=== PATIENT | female | born 1965 | race Caucasian/White ===

== ENCOUNTER → 2017-03-27 | Outpatient (CLI) | payer MEDICAID ==
--- NOTE | 2017-03-29 08:01 | MM ---
Reason for exam: screening (asymptomatic). Last mammogram was performed 1 year and 7 months ago. History: Patient is nulliparous. Cyst aspiration of the left breast. Took hormonal contraceptives for 2 years beginning at age 33. Physical Findings: A clinical breast exam by your physician is recommended on an annual basis and results should be correlated with mammographic findings. MG 3D Screening Mammo W/Cad Bilateral CC and MLO view(s) were taken. Prior study comparison: August 14, 2015, bilateral MG screening mammo w CAD. July 21, 2014, bilateral MG screening mammo w CAD. July 26, 2012, bilateral digital screening mammo w/CAD. The breast tissue is heterogeneously dense. This may lower the sensitivity of mammography. Nodular asymmetry lateral left breast at a middle to posterior depth doesn't clearly persist on tomosynthesis and can be reassessed in 6 months. Scattered regional calcifications are unchanged. ASSESSMENT: Probably benign, BI-RAD 3 RECOMMENDATION: Follow-up diagnostic mammogram of the left breast in 6 months.
== END | disposition home or self-care (01) ==
LOC: RADMAMWWP 07:59
PROVIDERS: ATTEND Obstetrics & Gynecology
DX: Z12.31 Encounter for screening mammogram for malignant neoplasm of breast (principal); R92.8 Other abnormal and inconclusive findings on diagnostic imaging of breast; R53.83 Other fatigue
CPT/HCPCS: 82607; 77063; G0202

== ENCOUNTER → 2018-02-19 | Outpatient (CLI) | payer MEDICAID | END | disposition home or self-care (01) | LOC: LABWHC1 11:03 | PROVIDERS: ATTEND Internal Medicine Endocrinology, Diabetes & Metabolism | DX: E03.8 Other specified hypothyroidism (principal); E55.9 Vitamin D deficiency, unspecified | CPT/HCPCS: 36415; 82306; 84443 ==

== ENCOUNTER → 2018-06-15 | Outpatient (CLI) | payer MEDICAID | END | disposition home or self-care (01) | LOC: LABWHC1 13:47 | PROVIDERS: ATTEND Internal Medicine Endocrinology, Diabetes & Metabolism | DX: E55.9 Vitamin D deficiency, unspecified (principal); E03.8 Other specified hypothyroidism | CPT/HCPCS: 36415; 82306; 84443 ==

== ENCOUNTER → 2018-08-13 | Outpatient (CLI) | payer MEDICAID ==
--- NOTE | 2018-08-14 07:54 | MM ---
Reason for exam: additional evaluation requested from prior study. Last mammogram was performed 1 year and 5 months ago. History: Patient is postmenopausal and is nulliparous. Cyst aspiration of the left breast. Took hormonal contraceptives for 2 years beginning at age 33. Physical Findings: Nurse did not find any significant physical abnormalities on exam. MG 3D Diag Mammo W/Cad ISIAH Bilateral CC and MLO view(s) were taken. Prior study comparison: March 27, 2017, bilateral MG 3d screening mammo w/cad. August 14, 2015, bilateral MG screening mammo w CAD. The breast tissue is extremely dense which could obscure a lesion on mammography. Regional calcifications superior right breast unchanged. A couple centrally located asymmetric densities right breast are more defined. Asymmetric density lower outer quadrant left breast on 3D MLO view. These results were verbally communicated with the patient and result sheet given to the patient on 08/13/18. ASSESSMENT: Incomplete: need additional imaging evaluation, BI-RAD 0 RECOMMENDATION: Ultrasound of both breasts. (right 5-1 o'clock, left 3-6 o'clock)
--- NOTE | 2018-08-14 08:00 | USB ---
Reason for exam: additional evaluation requested from abnormal screening. History: Patient is postmenopausal and is nulliparous. Cyst aspiration of the left breast. Took hormonal contraceptives for 2 years beginning at age 33. US Breast Limited BILAT Right limited breast ultrasound including focal area of concern, retroareolar and axilla demonstrates no cystic or solid lesion seen. Left limited breast ultrasound including focal area of concern, retroareolar and axilla demonstrates no cystic or solid lesion seen. Left scanned 3-6 o'clock, right scanned 5-1 o'clock. Very dense shadowing breast tissue is present on the left. No convincing solid or cystic lesion is seen. Given the asymmetries and very dense tissues on ultrasound, 6 month follow up ultrasound recommended. These results were verbally communicated with the patient and result sheet given to the patient on 08/13/18. ASSESSMENT: Probably benign, BI-RAD 3 RECOMMENDATION: Ultrasound of both breasts in 6 months.
== END ==
LOC: RADMAMWWP 14:21
PROVIDERS: ATTEND Obstetrics & Gynecology
DX: R92.8 Other abnormal and inconclusive findings on diagnostic imaging of breast (principal)
CPT/HCPCS: 77062; 77066

== ENCOUNTER → 2019-02-14 | Outpatient (CLI) | payer MEDICAID | END | disposition home or self-care (01) | LOC: LABWHC1 10:36 | PROVIDERS: ATTEND Internal Medicine Endocrinology, Diabetes & Metabolism | DX: E03.8 Other specified hypothyroidism (principal) | CPT/HCPCS: 36415; 84443 ==

== ENCOUNTER → 2019-03-12 | Outpatient (CLI) | payer MEDICAID ==
--- NOTE | 2019-03-12 14:41 | USB ---
Reason for exam: follow-up at short interval from prior study. History: Patient is postmenopausal and is nulliparous. Cyst aspiration of the left breast. Took hormonal contraceptives for 2 years beginning at age 33. Physical Findings: Nurse did not find any significant physical abnormalities on exam. US Breast BILAT Left complete breast ultrasound includes all four quadrants, the retroareolar region and axilla. Finding demonstrates a 1.2 x 1.1 x 1.1cm cystic lesion at 1 o'clock. Right complete breast ultrasound includes all four quadrants, the retroareolar region and axilla. Finding demonstrates no cystic or solid lesion seen. These results were verbally communicated with the patient and result sheet given to the patient on 03/12/19. ASSESSMENT: Benign, BI-RAD 2 RECOMMENDATION: Routine screening mammogram of both breasts in 5 months. Back on schedule for July 2019.
== END | disposition home or self-care (01) ==
LOC: RADUSWWP 13:38
PROVIDERS: ATTEND Obstetrics & Gynecology
DX: R92.8 Other abnormal and inconclusive findings on diagnostic imaging of breast (principal)

== ENCOUNTER → 2019-07-19 | Outpatient (CLI) | payer MEDICAID | END | disposition home or self-care (01) | LOC: LABWHC1 12:00 | PROVIDERS: ATTEND Internal Medicine Endocrinology, Diabetes & Metabolism | DX: E03.8 Other specified hypothyroidism (principal); E55.9 Vitamin D deficiency, unspecified | CPT/HCPCS: 36415; 82306; 84443 ==

== ENCOUNTER 2019-07-30 09:18 | Day surgery (SDC) | payer MEDICAID ==
[2019-07-24 14:35] VITALS: BMI 29.2
[~2019-07-30 09:18] MED LIST: LACTATED RINGERS 1,000 ML IV SCH
[2019-07-30 09:39] VITALS: RESP 16; TEMP 97.2
[2019-07-30] MEDS ORDERED: LIDOCAINE 1% 20 ML VIAL (10MG/ML) FOR IV START INTRADERMA ONE (09:53)
[2019-07-30] MEDS ORDERED: LIDOCAINE 1% INJ 10MG/ML (20 ML MDV) ONE (10:09)
[2019-07-30] MEDS ORDERED: PROPOFOL 10 MG/ML 20 ML VIAL IV ONE (10:09)
--- NOTE | 2019-07-30 10:52 | P.PCN ---
Date of Procedure: 07/30/19 Description of Procedure: Brief history: Patient is a pleasant scheduled for an elective upper endoscopy as well as colonoscopy as a part of evaluation of epigastric pain, bloating and family history of colon cancer. The patient will again losing. She does sensitivity to dairy and does use creamer in her coffee. She also prior colonoscopy in 2013. She notes that her father was recently diagnosed with metastatic colon cancer. Procedure performed: Esophagogastroduodenoscopy with biopsy Colonoscopy Estimated blood loss: Minimal. Preoperative diagnosis: Epigastric abdominal pain, abdominal bloating and distention, family history of colon cancer Anesthesia: MAC Procedure: After informed consent was obtained from the patient was brought into the endoscopy unit and IV sedation was administered by anesthesia under continuous monitoring. Initially upper endoscopy was done. The Olympus GF 190 video endoscope was inserted inserted into the mouth and esophagus intubated without any difficulty and was gradually advanced into the stomach and duodenum and carefully examined. The bulb and second part of the duodenum appeared normal., with biopsies taken The scope was then withdrawn into the stomach adequately insufflated with air and upon careful examination the antrum and body, cardia and fundus appeared normal except for some mild scattered erythema in the antrum and body suggestive of mild gastritis with biopsies taken . The scope was then withdrawn into the esophagus. The GE junction was located at 37 cm to the incisors. It appeared regular with no erythema erosions or ulcerations. Rest of the esophagus appeared normal. Patient tolerated the procedure well. At this time the patient continued to remain sedation. Initial digital rectal examination was normal. Olympus CF 190 video colonoscope was then inserted into the rectum and gradually advanced to the cecum without any difficulty. Careful examination was performed as the scope was gradually being withdrawn. The prep was excellent. The cecum, ascending colon, transverse colon, descending colon, sigmoid colon and rectum appeared normal. Colon was somewhat tortuous. Retroflexion was performed in the rectum and no lesions were noted, mild internal hemorrhoids seen . Patient tolerated the procedure well. Impression: 1. Mild gastritis antrum body, biopsied. Duodenal biopsies. 2. Mild internal hemorrhoids. Recommendations: Findings of this examination were discussed with the patient as well as her family. Okay to resume diet. Okay to resume medication. Await pathology from biopsies. Anticipate repeat colonoscopy in 5 years given family history of colon cancer.
[2019-07-30 11:11] VITALS: BP 109/62; PULSE 79
== END 2019-07-30 11:48 | disposition home or self-care (01) ==
LOC: ORWHC2ENDO 09:18
PROVIDERS: ATTEND Internal Medicine
DX: K29.50 Unspecified chronic gastritis without bleeding (principal); K64.8 Other hemorrhoids; Z80.0 Family history of malignant neoplasm of digestive organs; Q43.8 Other specified congenital malformations of intestine; E07.9 Disorder of thyroid, unspecified; Z79.890 Hormone replacement therapy
CPT/HCPCS: 43239; 45378; 88305; 88342; J2001; J2704

== ENCOUNTER → 2019-08-15 | Outpatient (CLI) | payer MEDICAID ==
--- NOTE | 2019-08-15 13:19 | XR ---
EXAMINATION TYPE: XR hand complete LT DATE OF EXAM: 08/15/2019 CLINICAL HISTORY: pain TECHNIQUE: Frontal, lateral and oblique images of the left hand are obtained. COMPARISON: None. FINDINGS: There is no acute fracture/dislocation evident. The joint spaces appear within normal limi ts. The overlying soft tissue appears unremarkable. IMPRESSION: There is no acute fracture or dislocation. ICD 10 NO FRACTURE, INITIAL EVALUATION
== END | disposition home or self-care (01) ==
LOC: RADXRMAIN 12:57
PROVIDERS: ATTEND Family Medicine
DX: M25.542 Pain in joints of left hand (principal)

== ENCOUNTER → 2019-08-16 | Outpatient (CLI) | payer MEDICAID ==
--- NOTE | 2019-08-20 08:27 | MM ---
Reason for exam: screening (asymptomatic). Last mammogram was performed 1 year ago. History: Patient is postmenopausal and is nulliparous. Family history of breast cancer in paternal grandmother. Cyst aspiration of the left breast. Took hormonal contraceptives for 2 years beginning at age 33. Physical Findings: A clinical breast exam by your physician is recommended on an annual basis and results should be correlated with mammographic findings. MG 3D Screening Mammo W/Cad Bilateral CC and MLO view(s) were taken. Prior study comparison: August 13, 2018, bilateral MG 3d diag mammo w/cad [facility]. March 27, 2017, bilateral MG 3d screening mammo w/cad. The breast tissue is heterogeneously dense. This may lower the sensitivity of mammography. There is chronic nodularity in the right posterior central and lateral on the CC view. Stable regional calcifications on the right. No significant changes when compared with prior studies. ASSESSMENT: Benign, BI-RAD 2 RECOMMENDATION: Routine screening mammogram of both breasts in 1 year.
== END | disposition home or self-care (01) ==
LOC: RADMAMWWP 13:48
PROVIDERS: ATTEND Obstetrics & Gynecology
DX: Z12.31 Encounter for screening mammogram for malignant neoplasm of breast (principal)
CPT/HCPCS: 77063; 77067

== ENCOUNTER → 2019-08-17 | Outpatient (CLI) | payer MEDICAID ==
[2019-08-17 09:47] LABS: Basophils % (A) 1 %; Eosinophils # (A) 0.2 k/uL (0-0.7); Eosinophils % (A) 4 %; HCT 41.2 % (34.0-46.0); HGB 13.9 gm/dL (11.4-16.0); Lymphocytes # (A) 1.6 k/uL (1.0-4.8); Lymphocytes % (A) 31 %; MCH 28.2 pg (25.0-35.0); MCHC 33.6 g/dL (31.0-37.0); Mean Platelet Volume 6.4; Monocytes # (A) 0.3 k/uL (0-1.0); Monocytes % (A) 5 %; Neutrophils # (A) 2.9 k/uL (1.3-7.7); Neutrophils % (A) 56 %; Platelet Count 316 k/uL (150-450); RBC 4.91 m/uL (3.80-5.40); RDW 13.7 % (11.5-15.5); WBC 5.2 k/uL (3.8-10.6)
[2019-08-17 11:25] LABS: Erythrocyte Sedimentation Rate 18 mm/hr (0-20)
[2019-08-17 16:16] LABS: Rheumatoid Factor 6 IU/mL (0-15)
[2019-08-17 16:36] LABS: ALT 27 U/L (8-44); AST 27 U/L (13-35); African American GFR (CKD) 112.3 (60.0-200.0); Alkaline Phosphatase 125 U/L (41-126); BUN/Creat Ratio 15.71 Ratio (12.00-20.00); C Reactive Protein <0.4 mg/dL (0.0-0.8); Calcium 9.8 mg/dL (8.7-10.3); Chloride 104 mmol/L (96-109); Cholesterol 270 mg/dL (0-200); Glucose 89 mg/dL (70-110); LDL Cholesterol,Calculated 177.2 mg/dL (0.0-131.0); Potassium 4.1 mmol/L (3.5-5.5); Sodium 141 mmol/L (135-145); Total Bilirubin 0.5 mg/dL (0.3-1.2); Total Protein 6.6 g/dL (6.2-8.2)
[2019-08-17 17:30] LABS: Hemoglobin A1C 5.5 % (4.0-6.0)
[2019-08-19 11:18] LABS: Cyclic Citrull Pep IgG Unit <0.5 U/mL; Cyclic Citrullinated Pep IgG NEGATIVE (NEGATIVE)
== END | disposition home or self-care (01) ==
LOC: LABWHC1 08:51
PROVIDERS: ATTEND Family Medicine
DX: M25.542 Pain in joints of left hand (principal); Z13.220 Encounter for screening for lipoid disorders; Z13.1 Encounter for screening for diabetes mellitus
CPT/HCPCS: 36415; 80053; 80061; 83036; 85025; 85652; 86038; 86140; 86200; 86431

== ENCOUNTER → 2020-02-19 | Outpatient (CLI) | payer MEDICAID ==
[2020-02-19 15:53] LABS: Chol/HDL Ratio 3.52; LDL Cholesterol,Calculated 197.4 mg/dL (0.0-131.0); VLDL Calculation 16.6 mg/dL (5.00-40.00)
== END | disposition home or self-care (01) ==
LOC: LABWHC1 09:12
PROVIDERS: ATTEND Internal Medicine Endocrinology, Diabetes & Metabolism
DX: E78.5 Hyperlipidemia, unspecified (principal); E03.8 Other specified hypothyroidism
CPT/HCPCS: 36415; 80061; 84443

== ENCOUNTER → 2020-05-22 | Outpatient (CLI) | payer MEDICAID ==
[~2020-05-22] MED LIST changes: -LACTATED RINGERS 1,000 ML IV SCH; +SODIUM CHLORIDE 0.9% 500 ML 500 ML in EMPTY BAG 1 BAG IV PRN
[2020-05-22 09:36] VITALS: BP 124/63; PULSE 68; RESP 16; TEMP 99
[2020-05-28 16:42] LABS: Metanephrine, Free <25 pg/mL (< OR = 57); Normetanephrine, Free 57 pg/mL (< OR = 148); Total, Free (MN + NMN) 57 pg/mL (< OR = 205)
== END | disposition home or self-care (01) ==
LOC: PROCWHC3 09:14
PROVIDERS: ATTEND Internal Medicine Endocrinology, Diabetes & Metabolism
DX: R23.2 Flushing (principal)
CPT/HCPCS: 36415; 82384; 83835

== ENCOUNTER → 2021-02-15 | Outpatient (CLI) | payer MEDICAID ==
[2021-02-15 19:27] LABS: T4, Free (Free Thyroxine) 1.4 ng/dL (0.80-1.80)
== END | disposition home or self-care (01) ==
LOC: LABWHC1 11:19
PROVIDERS: ATTEND Internal Medicine Endocrinology, Diabetes & Metabolism
DX: E03.8 Other specified hypothyroidism (principal); E55.9 Vitamin D deficiency, unspecified
CPT/HCPCS: 36415; 82306; 84439; 84443

== ENCOUNTER → 2021-04-02 | Outpatient (CLI) | payer MEDICAID ==
--- NOTE | 2021-04-05 10:27 | MM ---
Reason for exam: screening (asymptomatic). Last mammogram was performed 1 year and 8 months ago. History: Patient is postmenopausal and is nulliparous. Family history of breast cancer in paternal grandmother. Cyst aspiration of the left breast. Took hormonal contraceptives for 2 years beginning at age 33. Physical Findings: A clinical breast exam by your physician is recommended on an annual basis and results should be correlated with mammographic findings. MG 3D Screening Mammo W/Cad Bilateral CC and MLO view(s) were taken. Prior study comparison: August 16, 2019, bilateral MG 3d screening mammo w/cad. August 13, 2018, bilateral MG 3d diag mammo w/cad ISIAH. The breast tissue is heterogeneously dense. This may lower the sensitivity of mammography. Finding #1: Architectural distortion in the posterior, central position of the left breast. Finding #2: There are typically benign calcifications in the left breast. ASSESSMENT: Incomplete: need additional imaging evaluation, BI-RAD 0 RECOMMENDATION: Special view mammogram of the left breast. If lesion persists on supplemental views, image directed ultrasound is recommended. [facility] will attempt to contact patient to return for supplemental views and ultrasound if indicated.
== END | disposition home or self-care (01) ==
LOC: RADMAMWWP 13:24
PROVIDERS: ATTEND Obstetrics & Gynecology
DX: Z12.31 Encounter for screening mammogram for malignant neoplasm of breast (principal); Z78.0 Asymptomatic menopausal state; Z80.3 Family history of malignant neoplasm of breast
CPT/HCPCS: 77063; 77067

== ENCOUNTER → 2021-04-21 | Outpatient (CLI) | payer MEDICAID ==
--- NOTE | 2021-04-21 13:53 | MM ---
Reason for exam: additional evaluation requested from abnormal screening. Last mammogram was performed 1 month ago. History: Patient is postmenopausal and is nulliparous. Family history of breast cancer in paternal grandmother. Cyst aspiration of the left breast. Took hormonal contraceptives for 2 years beginning at age 33. Physical Findings: Nurse did not find any significant physical abnormalities on exam. MG 3D Work Up W/Cad LT Spot compression CC, LM, and XCCL view(s) were taken of the left breast. Prior study comparison: April 02, 2021, bilateral MG 3d screening mammo w/cad. August 16, 2019, bilateral MG 3d screening mammo w/cad. The breast tissue is extremely dense which could obscure a lesion on mammography. Architectural distortion 4-5cm left breast, best seen on CC, central to slight lateral position. Ultrasound left breast. These results were verbally communicated with the patient and result sheet given to the patient on 04/21/21. ASSESSMENT: Incomplete: need additional imaging evaluation, BI-RAD 0 RECOMMENDATION: Ultrasound of the left breast.
--- NOTE | 2021-04-21 13:55 | USB ---
Reason for exam: additional evaluation requested from abnormal screening. History: Patient is postmenopausal and is nulliparous. Family history of breast cancer in paternal grandmother. Cyst aspiration of the left breast. Took hormonal contraceptives for 2 years beginning at age 33. US Breast Workup Limited LT Left limited breast ultrasound including focal area of concern, retroareolar and axilla demonstrates no cystic or solid lesion seen. Very dense breasts. Due to increased architectural distortion on left CC view mammogram and sonographic findings, MRI of bilateral breasts is recommended. These results were verbally communicated with the patient and result sheet given to the patient on 04/21/21. ASSESSMENT: Incomplete: need additional imaging evaluation, BI-RAD 0 RECOMMENDATION: Breast MRI of both breasts.
== END | disposition home or self-care (01) ==
LOC: RADMAMWWP 10:12
PROVIDERS: ATTEND Obstetrics & Gynecology
DX: N64.59 Other signs and symptoms in breast (principal); N64.89 Other specified disorders of breast; Z78.0 Asymptomatic menopausal state; Z80.3 Family history of malignant neoplasm of breast
CPT/HCPCS: 77061; 77065

== ENCOUNTER → 2021-06-02 | Outpatient (CLI) | payer MEDICAID ==
--- NOTE | 2021-06-02 16:11 | BMR ---
EXAMINATION TYPE: MR breast BILAT wo/w con DATE OF EXAM: 06/02/2021 COMPARISON: Prior 3-D mammogram April 02, 2021 BI-RADS 0 and older mammograms. Diagnostic left breast ma mmogram April 21, 2021 BI-RADS 0. Limited left breast ultrasound April 21, 2021 BI-RADS 0. HISTORY: Abnormal Mammogram, Dense Breast Tissue TECHNIQUE: A series of fat and water weighted images in the long and short axis views of both breasts are obtained in conjunction with dynamic contrast MRI with subtraction technique. The patient was i njected with 7.5 mL intravenous Gadavist gadolinium contrast. Three-dimensional and additional post processing imaging is created on independent workstation and reviewed during official interpretation of this study. FINDINGS: Background extreme dense fibroglandular tissue bilaterally is redemonstrated. T2 and STIR w eighted images show central benign thin-walled 1.0 cm cyst in the left breast axial image 18 and occa sional smaller benign punctate thin-walled cyst bilaterally. No suspicious axillary adenopathy is not ed bilaterally. Dynamic postcontrast imaging shows mild background enhancement. Delayed dynamic postc ontrast imaging shows no suspicious internal mammary adenopathy bilaterally. With regards to the right breast, there is no abnormal skin thickening. No pathologic enhancement or enhancing masses are present. The chest wall is intact. With regards to the left breast there is no pathologic enhancement or enhancing masses identified. No suspicious skin thickening is seen. Particular attention is made to the posterior central portion at the site of distortion on mammogram. Chest wall is intact. IMPRESSION: No MRI evidence for invasive malignancy in either breast. BI-RADS 2 benign findings Recommendation: Patient is due for annual bilateral breast mammogram March 2022. Some consider bilater al breast US and/or contrast-enhanced bilateral breast mammogram surveillance in patients with backgr ound extreme dense tissue.
== END | disposition home or self-care (01) ==
LOC: RADMRIMAIN 08:00
PROVIDERS: ATTEND Obstetrics & Gynecology
DX: N60.02 Solitary cyst of left breast (principal); N60.01 Solitary cyst of right breast
CPT/HCPCS: 77049; C8937; A9585

== ENCOUNTER → 2021-07-21 | Outpatient (CLI) | payer MEDICAID ==
--- NOTE | 2021-07-21 14:56 | XR ---
EXAMINATION TYPE: XR cervical spine comp DATE OF EXAM: 07/21/2021 CLINICAL HISTORY: pain COMPARISON: NONE TECHNIQUE: Frontal, lateral, oblique, swimmers, and open mouth view of the cervical spine are obtaine d. FINDINGS: The cervical spine is visualized in its entirety from C1 thru the top of T1 level. It is s atisfactory in alignment without evidence of acute fracture or dislocation. The pre-vertebral soft t issue appears within normal limits. Degenerative narrowing at C5-6 and C6-7 with ventral spondylosis. The C1-C2 articulation is unremarkable on the open mouth view. The oblique images are within normal limits. IMPRESSION: No acute fracture or dislocation is seen in the cervical spine.ICD 10 NO FRACTURE, INITI AL EVALUATION
== END | disposition home or self-care (01) ==
LOC: RADXRMAIN 14:11
PROVIDERS: ATTEND Nurse Practitioner Family
DX: M54.2 Cervicalgia (principal)
CPT/HCPCS: 72050

== ENCOUNTER → 2021-08-06 | Outpatient (CLI) | payer MEDICAID ==
[2021-08-06 22:24] LABS: T4, Free (Free Thyroxine) 1.7 ng/dL (0.80-1.80)
== END | disposition home or self-care (01) ==
LOC: LABWHC1 09:48
PROVIDERS: ATTEND Internal Medicine Endocrinology, Diabetes & Metabolism
DX: E55.9 Vitamin D deficiency, unspecified (principal); E03.8 Other specified hypothyroidism
CPT/HCPCS: 36415; 82306; 84439; 84443

== ENCOUNTER → 2022-06-15 | Outpatient (CLI) | payer MEDICAID ==
--- NOTE | 2022-06-15 08:39 | MM ---
Reason for Exam: Clinical finding. Last mammogram was performed 1 year(s) and 2 month(s) ago. Patient History: Menarche at age 11. Patient has no children. Postmenopausal. Hormonal Contraceptives for 2 years from age 33 until age 35. Cyst Aspiration on the Left side. Paternal grandmother had breast cancer. Risk Values: Maya 5 year model risk: 1.5%. NCI Lifetime model risk: 8.3%. Tissue Density: The breast tissue is extremely dense which could obscure a lesion on mammography. Findings: Analyzed By CAD. No masses seen. No suspicious microcalcifications evident. Overall Assessment: Negative, BI-RAD 1 Management: Screening Mammogram of both breasts in 1 year. A clinical breast exam by your physician is recommended on an annual basis and results should be correlated with mammographic findings. This exam should not preclude additional follow-up of suspicious palpable abnormalities. Results were given to the patient verbally at the time of exam. Electronically signed and approved by: Woody Gallegos M.D. Radiologis
== END | disposition home or self-care (01) ==
LOC: RADMAMWWP 08:06
PROVIDERS: ATTEND Obstetrics & Gynecology
DX: R92.8 Other abnormal and inconclusive findings on diagnostic imaging of breast (principal); Z78.0 Asymptomatic menopausal state; Z80.3 Family history of malignant neoplasm of breast
CPT/HCPCS: 77062; 77066

== ENCOUNTER → 2023-02-15 | Outpatient (CLI) | payer BC, MEDICAID | END | disposition home or self-care (01) | LOC: EDBD → LABWHC1 14:21 | PROVIDERS: ATTEND Internal Medicine Endocrinology, Diabetes & Metabolism | DX: E03.8 Other specified hypothyroidism (principal) | CPT/HCPCS: 36415; 84443 ==

== ENCOUNTER → 2023-02-22 | Outpatient (CLI) | payer BC, MEDICAID ==
[2023-02-22 16:00] LABS: ALT 18 U/L (8-44); AST 23 U/L (13-35); African American GFR (CKD) 95.8 (60.0-200.0); Albumin 4.4 g/dL (3.8-4.9); Albumin/Globulin Ratio 1.73 (1.60-3.17); Alkaline Phosphatase 114 U/L (41-126); BUN/Creat Ratio 11.27 Ratio (12.00-20.00); Blood Urea Nitrogen 8.8 mg/dL (9.0-27.0); Calcium 9.6 mg/dL (8.7-10.3); Carbon Dioxide 27.6 mmol/L (20.0-27.5); Chloride 102 mmol/L (96-109); Chol/HDL Ratio 2.53 Ratio; Globulin 2.6 g/dL (1.6-3.3); Glucose 97 mg/dL (70-110); LDL Cholesterol,Calculated 102.1 mg/dL (0.0-131.0); Non-African American GFR(CKD) 82.6 (60.0-200.0); Potassium 3.9 mmol/L (3.5-5.5); Sodium 140 mmol/L (135-145); VLDL Calculation 16.42 mg/dL (5.00-40.00)
== END | disposition home or self-care (01) ==
LOC: LABWHC1 09:52
PROVIDERS: ATTEND Obstetrics & Gynecology
DX: Z78.0 Asymptomatic menopausal state (principal)
CPT/HCPCS: 36415; 80053; 80061; 83036

== ENCOUNTER → 2023-06-26 | Outpatient (CLI) | payer BC, MEDICAID ==
--- NOTE | 2023-06-27 20:31 | MM ---
Reason for Exam: Screening (asymptomatic). Last screening mammogram was performed 12 month(s) ago. Patient History: Menarche at age 11. Patient has no children. Postmenopausal. Hormonal Contraceptives for 2 years from age 33 until age 35. Cyst Aspiration on the Left side. Paternal grandmother had breast cancer. Risk Values: Maya 5 year model risk: 1.6%. NCI Lifetime model risk: 8.1%. Prior Study Comparison: 04/02/2021 Bilateral Screening Mammogram, [facility]. 04/21/2021 Left Diagnostic Mammogram, [facility]. 06/15/2022 Bilateral MG 3D diag mammo w/cad ISIAH, [facility]. Tissue Density: The breast tissue is heterogeneously dense. This may lower the sensitivity of mammography. Findings: Analyzed By CAD. Unchanged configuration to the breast tissue centrally posterior left CC view. There is no suspicious group of microcalcifications or new suspicious mass in either breast. Overall Assessment: Benign, BI-RAD 2 Management: Screening Mammogram of both breasts in 1 year. . Patient should continue monthly self-breast exams. A clinical breast exam by your physician is recommended on an annual basis. This exam should not preclude additional follow-up of suspicious palpable abnormalities. Note on Maya scores and lifetime risk: 1. A Maya score greater than 3% is considered moderate risk. If this is the case, consider specialist referral to assess eligibility for a risk reducing agent. 2. If overall lifetime risk for the development of breast cancer is 20% or higher, the patient may qualify for future screening with alternating mammogram and breast MRI. Electronically signed and approved by: Noni Delgado M.D. Radiologist
== END | disposition home or self-care (01) ==
LOC: RADMAMWWP 13:08
PROVIDERS: ATTEND Obstetrics & Gynecology
DX: Z12.31 Encounter for screening mammogram for malignant neoplasm of breast (principal); Z78.0 Asymptomatic menopausal state; Z80.3 Family history of malignant neoplasm of breast
CPT/HCPCS: 77063; 77067

== ENCOUNTER → 2023-07-26 | Outpatient (CLI) | payer BC | END | disposition home or self-care (01) | LOC: LABWHC1 10:30 | PROVIDERS: ATTEND Internal Medicine Endocrinology, Diabetes & Metabolism | DX: E03.8 Other specified hypothyroidism (principal) | CPT/HCPCS: 36415; 82306; 84443 ==

== ENCOUNTER → 2024-07-30 | Outpatient (CLI) | payer BC | END | disposition home or self-care (01) | LOC: LABWHC1 13:36 | PROVIDERS: ATTEND Internal Medicine Endocrinology, Diabetes & Metabolism | DX: E03.8 Other specified hypothyroidism (principal); E55.9 Vitamin D deficiency, unspecified | CPT/HCPCS: 36415; 82306; 84443 ==

== ENCOUNTER 2024-08-06 08:32 | Day surgery (SDC) | payer BC ==
[2024-07-31 11:43] VITALS: BMI 29.0
[~2024-08-06 08:32] MED LIST changes: +LIDOCAINE 1% (10MG/ML) FOR IV START INTRADERMA PRN; -SODIUM CHLORIDE 0.9% 500 ML 500 ML in EMPTY BAG 1 BAG IV PRN
[2024-08-06 09:11] VITALS: TEMP 97.8
[2024-08-06] MEDS: LACTATED RINGERS 1,000 ML IV SCH (09:17)
[2024-08-06] MEDS: IV FLUID CONTINUATION 1,000 ML IV ONE (09:17)
[2024-08-06] MEDS ORDERED: PROPOFOL 10 MG/ML 20 ML VIAL IV ONE (10:06)
[2024-08-06] MEDS ORDERED: LIDOCAINE 1% INJ 10MG/ML (20 ML MDV) ONE (10:06)
--- NOTE | 2024-08-06 10:31 | P.PCN ---
Date of Procedure: 08/06/24 Procedure(s) Performed: BRIEF HISTORY: Patient is a 59-year-old pleasant white female scheduled for an elective colonoscopy as a part of screening for colon cancer. Mother was diagnosed with colon cancer at age 60. PROCEDURE PERFORMED: Colonoscopy. PREOPERATIVE DIAGNOSIS: Screening for colon cancer and family history of colon cancer. IV sedation per Anesthesia. PROCEDURE: After informed consent was obtained, the patient, was brought into the endoscopy unit. IV sedation was administered by Anesthesia under continuous monitoring. Digital rectal examination was normal. Initially the Olympus CF-160 flexible video colonoscope was then inserted in the rectum, gradually advanced into the cecum without any difficulty. Careful examination was performed as the scope was gradually being withdrawn. Ileocecal valve and the appendiceal orifice were visualized and appeared normal. Prep was excellent. Mucosa of the cecum, ascending colon, transverse colon, descending colon, sigmoid colon, and rectum appeared normal. Retroflexion was performed in the rectum and no lesions were seen. The patient tolerated the procedure well. IMPRESSION: Normal-appearing colon from rectum to cecum with no evidence of colorectal neoplasia RECOMMENDATIONS: Findings of this examination were discussed with the patient as well as her family. She was advised to have repeat screening colonoscopy in 5 years because of a family history of colon cancer.
[2024-08-06 10:58] VITALS: BP 118/63; PULSE 52; RESP 18
== END 2024-08-06 11:24 | disposition home or self-care (01) ==
LOC: ORWHC2ENDO 08:32
PROVIDERS: ATTEND Internal Medicine Gastroenterology
DX: Z12.11 Encounter for screening for malignant neoplasm of colon (principal); Z80.0 Family history of malignant neoplasm of digestive organs
CPT/HCPCS: 45378